=== PATIENT | female | born 2000 | race African-American/Black ===

== ENCOUNTER 2021-06-30 08:27 | Outpatient (RCR) | payer BC, SELFPAY ==
[2021-06-30 15:19] VITALS: BP 120/52; PULSE 69; RESP 14; TEMP 36.3; O2SAT 100
[2021-06-30] MEDS: ACETAMINOPHEN 325 MG TABLET 650 MG PO (15:28)
[2021-06-30] MEDS: FAMOTIDINE 20 MG TABLET PO (15:28)
[2021-06-30] MEDS: diphenhydrAMINE HCl CAP 25 MG CAPSULE PO (15:28)
[2021-06-30 16:29] VITALS: BP 128/64
--- NOTE | 2021-07-01 15:17 | PC.NURSE ---
Called Yaniv and she said she is doing well today and has no questions for us.
== END 2021-06-30 17:00 ==
LOC: AMCINF 08:27
PROVIDERS: Visit Provider Internal Medicine Hematology & Oncology
DX: U07.1 COVID-19 (principal); D84.9 Immunodeficiency, unspecified
CPT/HCPCS: A9270; M0243; Q0244

== ENCOUNTER 2021-08-26 17:04 | Emergency (ER) | payer BC, SELFPAY ==
--- NOTE | ~2021-08-26 | CT_ITS ---
EXAMINATION: CTA chest PE protocol DATE: 08/26/2021 18:48 INDICATION: Chest pain. TECHNIQUE: Computed tomography angiography (CTA) of the chest was performed with 100 mL Omnipaque-350 intravenous contrast timed to evaluate the pulmonary arteries. Coronal maximum intensity projection 3D-reconstructions were created by the technologist. Automated exposure control and iterative reconst ruction technique were employed. The dose-length product was 243.27 mGy-cm. COMPARISON: Chest 2 views 08/26/21 FINDINGS: There is septal thickening in the inferior lungs consistent with mild pulmonary edema. Ther e is a small left pleural effusion. There are airspace opacities in basilar left lower lobe and lingu la, consistent with atelectasis. There is a gallstone in the gallbladder. Cardiomegaly is noted. No p ericardial effusion. There is mild mediastinal, bilateral hilar, and bilateral axillary lymphadenopat hy. There is no pulmonary embolus. There is mild chronic anterior wedging of T12 vertebral body. IMPRESSION: 1. No pulmonary embolus. 2. Mild pulmonary edema and small left pleural effusion. 3. Cardiomegaly. 4. Mild chest lymphadenopathy, which may be reactive. Reviewed, dictated and finalized at location E. CONSERVATIONIST
--- NOTE | ~2021-08-26 | XR_ITS ---
EXAMINATION: XR chest 2V DATE: 08/26/2021 17:31 INDICATION: Left chest pain. TECHNIQUE: Frontal and lateral views of the chest were obtained. COMPARISON: None. FINDINGS: There are mild airspace opacities at left lung base. Left-sided pleural thickening versus t iny loculated pleural effusion is noted. No pneumothorax. The heart size is normal. IMPRESSION: 1. Mild airspace opacities at left lung base, consistent with atelectasis/scarring versus pneumonia. 2. Left-sided pleural thickening versus tiny loculated pleural effusion. Reviewed, dictated and finalized at location E. CASTER IMPRESSION: 1. Mild airspace opacities at left lung base, consistent with atelectasis/scarr ing versus pneumonia. 2. Left-sided pleural thickening versus tiny loculated pleural effusion.
[2021-08-26 17:06] VITALS: BP 161/92; PULSE 70; RESP 18; O2SAT 100
--- NOTE | 2021-08-26 17:11 | ECG_ITS ---
Measurements Intervals [place] Rate: 76 P: 51 NC: 166 QRS: 44 QRSD: 85 T: 64 QT: 378 QTc: 425 Interpretive Statements SINUS RHYTHM INCOMPLETE RIGHT BUNDLE BRANCH BLOCK BASELINE WANDER- I, III, AVL, AVF BORDERLINE ECG Electronically Signed On 08-26-2021 20:46:38 [employer]UMBING WAREHOUSE HELPER by Deangelo Webster D.O.
[2021-08-26 17:22] VITALS: BP 156/90; PULSE 71; RESP 14; O2SAT 100
[2021-08-26 17:36] LABS: Alanine Aminotransferase 14 U/L (4-35); Albumin Level 3.3 g/dL (3.5-5.1); Alkaline Phosphatase 64 U/L (38-126); Anion Gap 9 mmol/L (8-16); Aspartate Amino Transferase 28 U/L (14-36); Bilirubin,Total 0.4 mg/dL (0.2-1.3); Blood Urea Nitrogen 22 mg/dL (7-17); Calcium 8.6 mg/dL (8.4-10.2); Carbon Dioxide 23 mmol/L (22-30); Chloride 104 mmol/L (98-107); Estimated CRCL calculation 66 ml/min; Estimated Glomerular Filt Rate > 60; Glucose 84 mg/dL (65-110); Lipase 116 U/L (23-300); Potassium 4.3 mmol/L (3.4-5.0); Sodium 136 mmol/L (137-145)
[2021-08-26 17:39] LABS: Basophils Percent Auto 0.4 % (0.2-1.2); Eosinophils Absolute Auto 0.1 K/mm3 (0-0.3); Eosinophils Percent Auto 1.2 % (0-4.4); Hematocrit 29.9 % (37.0-47.0); Hemoglobin 9.2 g/dL (12.0-15.0); Immature Granulocyte Absolute 0.01 K/mm3 (0.00-0.031); Immature Granulocyte Percent A 0.2 % (0-0.5); Lymphocytes Absolute Auto 0.89 K/mm3 (0.9-3.2); Lymphocytes Percent Auto 17.1 % (18.3-44.2); Mean Corpuscular HGB Conc 30.8 g/dl (32-36); Mean Corpuscular Hemoglobin 27.5 pg (26-34); Mean Corpuscular Volume 89.3 fl (80-100); Mean Platelet Volume 10.8 fl (7.4-10.4); Monocytes Absolute Auto 0.9 K/mm3 (0.1-0.6); Monocytes Percent Auto 16.5 % (2.6-8.5); Neutrophils Absolute Auto 3.4 K/mm3 (1.3-6.7); Neutrophils Percent Auto 64.6 % (45.5-73.1); Platelet Count Result 307 k/mm3 (150-375); Red Blood Count 3.35 M/mm3 (4.2-5.4); Red Cell Distribution Width 12.6 % (11.5-14.5); White Blood Count 5.2 K/mm3 (4.5-10.0)
[2021-08-26 17:43] LABS: Prothrombin Time 13.1 Seconds (11.1-14.7)
[2021-08-26 17:44] LABS: Partial Thromboplastin Time 28.6 SECONDS (22.3-36.8)
--- NOTE | 2021-08-26 17:46 | ED.CHESTPAIN ---
HPI - Chest Pain General Chief Complaint: Chest Pain Stated Complaint: chest pain Time Seen by Provider: 08/26/21 17:32 Source: patient Mode of arrival: ambulatory Limitations: no limitations History of Present Illness HPI narrative: Patient is a 21-year-old female complaining of chest pain, left chest wall, sharp, 6 out of 10, nonradiating, worse with deep breaths accompanied by shortness of breath that started last night. Patient denies any abdominal pain, nausea, vomiting, diaphoresis, fever or chills. Patient states that she has a history of fluid in her lungs due to her lupus. Related Data Home Medications Medication Instructions Recorded Confirmed belimumab [Benlysta] 200 mg SUBCUT WEEKLY 06/30/21 06/30/21 hydroxychloroquine [Plaquenil] 200 mg PO DAILY 06/30/21 06/30/21 lisinopril 10 mg PO DAILY 06/30/21 06/30/21 mycophenolate mofetil 1,000 mg PO BID 06/30/21 mycophenolate mofetil 250 mg PO DAILY 06/30/21 sulfamethoxazole-trimethoprim 1 tablet PO HS 06/30/21 06/30/21 [Bactrim] prednisone 20 mg DAILY 08/26/21 Allergies Allergy/AdvReac Type Severity Reaction Status Date / Time fruit Allergy Intermediate Unknown Uncoded 08/26/21 17:14 Review of Systems Review of Systems: All systems reviewed & are unremarkable except as noted in HPI and below Constitutional: Constitutional: Denies body ache(s), Denies chills, Denies excessive sweating, Denies fatigue, Denies fever(s), Denies headache(s), Denies lethargy, Denies malaise, Denies weakness and Denies weight loss Eyes: Eyes: Denies blurry vision, Denies change in vision and Denies loss of vision ENT: Denies dizziness, Denies ear discharge, Denies headache(s), Denies lip swelling, Denies epistaxis, Denies nasal congestion, Denies neck pain, Denies throat swelling and Denies tongue swelling Cardiovascular: Cardiovascular: Denies diaphoresis, Denies rapid heart rate, Denies edema, Denies irregular heart rhythm, Denies lightheadedness and Denies palpitations Respiratory: Respiratory: Denies chest congestion, Denies cough and Denies hemoptysis Gastrointestinal: Gastrointestinal: Denies abdominal pain, Denies melena, Denies hematochezia, Denies diarrhea, Denies nausea, Denies vomiting and Denies hematemesis Musculoskeletal: Musculoskeletal: Denies abnormal gait, Denies deformity, Denies joint swelling, Denies limited range of motion, Denies neck pain and Denies numbness Neurologic: Denies Abnormal speech present, Denies abnormal gait, Denies confusion, Denies dizziness, Denies headache(s), Denies focal weakness, Denies loss of vision, Denies numbness, Denies Other visual disturbances, Denies Sensory deficit (Neuro) and Denies weakness Psychiatric: Psychiatric: Denies confusion, Denies depression, Denies auditory hallucinations, Denies homicidal ideation and Denies suicidal ideation Endocrine: Endocrine: Denies cold intolerance, Denies excessive sweating, Denies fatigue, Denies heat intolerance and Denies palpitations Hematologic/Lymphatic: Hematologic/Lymphatic: Denies easy bleeding and Denies easy bruising Allergic/Immunologic: Allergic/Immunologic: Denies lip swelling, Denies throat swelling and Denies tongue swelling [facility] [place] Social History Social History Smoking status: Never smoker Spiritual care concerns: No Comments Past medical history Lupus Family history: Negative for coronary disease or [place] Social history: Non-smoker no EtOH or drug use Exam Const: General: cooperative, healthy appearing, comfortable, no acute distress, well developed, alert and awake; No confusion Orientation/consciousness: oriented to person, oriented to place, oriented to time, patient oriented x3 and No confusion Limitations: no limitations HENMT: Head: normal to inspection, normocephalic and atraumatic Ears: hearing grossly normal bilaterally, TM normal on the right and TM normal on the left General nose exam: Normal external n
[2021-08-26 17:47] LABS: Troponin I < 0.012 ng/mL (0.000-0.034)
[2021-08-26 18:04] LABS: D Dimer 0.84 ug/mL (<0.48)
[2021-08-26] MEDS: LACTATED RINGERS 1,000 ML 999 ML IV CONT (18:30)
[2021-08-26] MEDS: ACETAMINOPHEN 325 MG TABLET 650 MG PO (19:37)
[2021-08-26 20:29] LABS: Troponin I < 0.012 ng/mL (0.000-0.034)
[2021-08-26] MEDS: FUROSEMIDE INJ 40 MG/4 ML VIAL 20 MG IV PUSH (21:33)
[2021-08-26 21:47] VITALS: BP 151/89; PULSE 98; RESP 18; O2SAT 98
--- NOTE | 2021-08-27 02:52 | PC.NURSE ---
all documentation done by BRANT was performed by Angelika Brantley RN. Times of documentation are correct.
== END 2021-08-26 21:48 | disposition home or self-care (01) ==
PROVIDERS: Emergency Provider Emergency Medicine
DX: J90 Pleural effusion, not elsewhere classified (principal)
CPT/HCPCS: 36415; 71046; 71275; 80053; 83690; 84484; 85025; 85380; 85610; 85730; 93005; 96361; 96374; 99284; A9270; J1940; J7120; Q9967

== ENCOUNTER 2021-10-24 01:35 | Emergency (ER) | payer BC, SELFPAY ==
[2021-10-24] VITALS (7 sets, daily range): BP systolic 109–143; BP diastolic 65–92; PULSE 65–89; RESP 16–23; TEMP 37.3; O2SAT 96–100
--- NOTE | ~2021-10-24 | CT_ITS ---
EXAMINATION: CTA chest PE protocol DATE: 10/24/2021 03:44 INDICATION: Chest pain, history of lupus TECHNIQUE: Computed tomography angiography (CTA) of the chest was performed with 100 mL Omnipaque-350 intravenous contrast timed to evaluate the pulmonary arteries. Coronal maximum intensity projection 3D-reconstructions were created by the technologist. The dose-length product (DLP) was 254.35 mGy-cm. Automated exposure control and iterative reconstruction technique were employed. COMPARISON: 08/26/2021 FINDINGS: The pulmonary arteries are well-opacified. No pulmonary embolism is identified. There is a small left pleural effusion. Mild atelectasis is noted in the lung bases, left greater than right. T here is no pneumothorax. Cardiomegaly is noted. There is unchanged mild bilateral hilar, mediastinal, and bilateral axillary lymphadenopathy, likely reactive. The visualized osseous structures are unrem arkable. IMPRESSION: 1. No pulmonary embolus. 2. Small left pleural effusion. 3. Cardiomegaly. 4. Unchanged mild thoracic lymphadenopathy, likely reactive. Reviewed, dictated and finalized at location A.
--- NOTE | ~2021-10-24 | XR_ITS ---
EXAMINATION: XR chest 2V DATE: 10/24/2021 02:11 INDICATION: Chest pain TECHNIQUE: PA and lateral views of the chest are obtained. COMPARISON: 08/26/2021 FINDINGS: The lungs are free of acute opacities. There is no pleural effusion or pneumothorax. The ca rdiomediastinal silhouette is normal. The visualized bones and soft tissues are unremarkable. IMPRESSION: 1. No acute cardiopulmonary abnormality. Reviewed, dictated and finalized at location A.
--- NOTE | 2021-10-24 01:51 | ECG_ITS ---
Measurements Intervals [place] Rate: 81 P: 57 DC: 156 QRS: 37 QRSD: 80 T: 33 QT: 348 QTc: 406 Interpretive Statements SINUS RHYTHM NORMAL ECG COMPARED TO ECG 08/26/2021 17:17:55 NO SIGNIFICANT CHANGES Electronically Signed On 10-24-2021 15:26:51 CDT by Ángel Keith M.D.
[2021-10-24 02:10] LABS: Basophils Percent Auto 0.5 % (0.2-1.2); Eosinophils Absolute Auto 0.1 K/mm3 (0-0.3); Eosinophils Percent Auto 1.6 % (0-4.4); Hematocrit 29.7 % (37.0-47.0); Immature Granulocyte Absolute 0.01 K/mm3 (0.00-0.031); Immature Granulocyte Percent A 0.2 % (0-0.5); Lymphocytes Absolute Auto 0.84 K/mm3 (0.9-3.2); Lymphocytes Percent Auto 19.2 % (18.3-44.2); Mean Corpuscular HGB Conc 30.3 g/dl (32-36); Mean Corpuscular Hemoglobin 26.9 pg (26-34); Mean Corpuscular Volume 88.7 fl (80-100); Monocytes Absolute Auto 0.5 K/mm3 (0.1-0.6); Neutrophils Percent Auto 67.5 % (45.5-73.1); Platelet Count Result 311 k/mm3 (150-375); Red Blood Count 3.35 M/mm3 (4.2-5.4); Red Cell Distribution Width 13.4 % (11.5-14.5); White Blood Count 4.4 K/mm3 (4.5-10.0)
--- NOTE | 2021-10-24 02:11 | ED.CHESTPAIN ---
HPI - Chest Pain General Chief Complaint: Chest Pain Stated Complaint: left shoulder pain, radiates to chest and neck Time Seen by Provider: 10/24/21 02:08 Related Data Home Medications Medication Instructions Recorded Confirmed belimumab [Benlysta] 200 mg SUBCUT WEEKLY 06/30/21 06/30/21 hydroxychloroquine [Plaquenil] 200 mg PO DAILY 06/30/21 06/30/21 lisinopril 10 mg PO DAILY 06/30/21 06/30/21 mycophenolate mofetil 1,000 mg PO BID 06/30/21 mycophenolate mofetil 250 mg PO DAILY 06/30/21 sulfamethoxazole-trimethoprim 1 tablet PO HS 06/30/21 06/30/21 [Bactrim] prednisone 20 mg DAILY 08/26/21 Allergies Allergy/AdvReac Type Severity Reaction Status Date / Time fruit Allergy Intermediate Unknown Uncoded 10/24/21 01:49 [facility] Social History Social History Smoking status: Never smoker Spiritual care concerns: No Course Vital Signs Vital signs: Vital Signs Temperature 99.2 F 10/24/21 01:45 Pulse Rate 85 10/24/21 01:45 Respiratory Rate 16 10/24/21 01:45 Blood Pressure 143/84 H 10/24/21 01:45 Pulse Oximetry 100 10/24/21 01:45 Temperature 99.2 F 10/24/21 01:45 Pulse Rate 65 10/24/21 05:01 Respiratory Rate 16 10/24/21 05:01 Blood Pressure 109/65 10/24/21 05:01 Pulse Oximetry 100 10/24/21 05:01 MDM - Chest Pain Lab Data Attestation: I reviewed the patient's lab results. Result diagrams: 10/24/21 02:01 10/24/21 02:01 Labs: Lab Results 10/24/21 10/24/21 10/24/21 Range/Units 02:01 02:01 02:01 WBC 4.4 L (4.5-10.0) K/mm3 RBC 3.35 L (4.2-5.4) M/mm3 Hgb 9.0 L (12.0-15.0) g/dL Hct 29.7 L (37.0-47.0) % MCV 88.7 (80-100) fl MCH 26.9 (26-34) pg MCHC 30.3 L (32-36) g/dl RDW 13.4 (11.5-14.5) % Plt Count 311 (150-375) k/mm3 MPV 10.0 (7.4-10.4) fl Immature Gran % (Auto) 0.2 (0-0.5) % Neut % (Auto) 67.5 (45.5-73.1) % Lymph % (Auto) 19.2 (18.3-44.2) % [place] % (Auto) 11.0 H (2.6-8.5) % Eos % (Auto) 1.6 (0-4.4) % Baso % (Auto) 0.5 (0.2-1.2) % Lymph # (Auto) 0.84 L (0.9-3.2) K/mm3 [place] # (Auto) 0.5 (0.1-0.6) K/mm3 Eos # (Auto) 0.1 (0-0.3) K/mm3 Baso # (Auto) 0.0 (0.0-0.1) K/mm3 Abs Immat Gran (auto) 0.01 (0.00-0.031) K/mm3 Absolute Neuts (auto) 3.0 (1.3-6.7) K/mm3 Absolute Nucleated RBC 0.0 (0.0-0.012) K/mm3 Nucleated RBC % 0.0 (0.0-0.2) % PT 12.5 (11.1-14.7) Seconds INR 1.0 APTT 20.4 L (22.3-36.8) SECONDS D-Dimer (<0.48) ug/mL Sodium 132 L (137-145) mmol/L Potassium 3.5 (3.4-5.0) mmol/L Chloride 106 (98-107) mmol/L Carbon Dioxide 22 (22-30) mmol/L Anion Gap 4 L (8-16) mmol/L BUN 17 (7-17) mg/dL Creatinine 0.80 (0.7-1.0) mg/dL Estim Creat Clear Calc 94232 ml/min Estimated GFR > 60 (59 - ) Glucose 103 (65-110) mg/dL Calcium 8.0 L (8.4-10.2) mg/dL Total Bilirubin 0.3 (0.2-1.3) mg/dL AST 27 (14-36) U/L ALT 12 (4-35) U/L Alkaline Phosphatase 59 (38-126) U/L Troponin I < 0.012 (0.000-0.034) ng/mL Total Protein 7.0 (6.3-8.2) g/dL Albumin 3.0 L (3.5-5.1) g/dL Lipase 125 (23-300) U/L 10/24/21 Range/Units 02:01 WBC (4.5-10.0) K/mm3 RBC (4.2-5.4) M/mm3 Hgb (12.0-15.0) g/dL Hct (37.0-47.0) % MCV (80-100) fl MCH (26-34) pg MCHC (32-36) g/dl RDW (11.5-14.5) % Plt Count (150-375) k/mm3 MPV (7.4-10.4) fl Immature Gran % (Auto) (0-0.5) % Neut % (Auto) (45.5-73.1) % Lymph % (Auto) (18.3-44.2) % [place] % (Auto) (2.6-8.5) % Eos % (Auto) (0-4.4) % Baso % (Auto) (0.2-1.2) % Lymph # (Auto) (0.9-3.2) K/mm3 [place] # (Auto) (0.1-0.6) K/mm3 Eos # (Auto) (0-0.3) K/mm3 Baso # (Auto) (0.0-0.1) K/mm3 Abs Immat Gran (auto) (0.00-0.031) K/mm3 Absolute Neuts (auto) (1.3-6.7) K/mm3 Absolute Nucleated RBC (0.0-0.012)
[2021-10-24 02:20] LABS: Alanine Aminotransferase 12 U/L (4-35); Alkaline Phosphatase 59 U/L (38-126); Anion Gap 4 mmol/L (8-16); Aspartate Amino Transferase 27 U/L (14-36); Bilirubin,Total 0.3 mg/dL (0.2-1.3); Blood Urea Nitrogen 17 mg/dL (7-17); Carbon Dioxide 22 mmol/L (22-30); Chloride 106 mmol/L (98-107); Estimated CRCL calculation 47136 ml/min; Estimated Glomerular Filt Rate > 60; Glucose 103 mg/dL (65-110); Lipase 125 U/L (23-300); Partial Thromboplastin Time 20.4 SECONDS (22.3-36.8); Potassium 3.5 mmol/L (3.4-5.0); Prothrombin Time 12.5 Seconds (11.1-14.7); Sodium 132 mmol/L (137-145)
[2021-10-24 02:32] LABS: Troponin I < 0.012 ng/mL (0.000-0.034)
--- NOTE | 2021-10-24 02:32 | ED.CHESTPAIN ---
HPI - Chest Pain General Chief Complaint: Chest Pain Stated Complaint: left shoulder pain, radiates to chest and neck Time Seen by Provider: 10/24/21 02:08 History of Present Illness HPI narrative: 21-year-old female presents the emergency room with acute onset of left shoulder pain that occurred earlier tonight. Patient states the pain was sharp and stabbing and then radiated into her left anterior chest. Patient states the pain is worse with inspiration, and she is unable to take a deep satisfying breath at this time. Patient has a history of lupus, and recently pleurisy. Patient takes Plaquenil and 40 mg of prednisone daily. Related Data Home Medications Medication Instructions Recorded Confirmed belimumab [Benlysta] 200 mg SUBCUT WEEKLY 06/30/21 06/30/21 hydroxychloroquine [Plaquenil] 200 mg PO DAILY 06/30/21 06/30/21 lisinopril 10 mg PO DAILY 06/30/21 06/30/21 mycophenolate mofetil 1,000 mg PO BID 06/30/21 mycophenolate mofetil 250 mg PO DAILY 06/30/21 sulfamethoxazole-trimethoprim 1 tablet PO HS 06/30/21 06/30/21 [Bactrim] prednisone 20 mg DAILY 08/26/21 Allergies Allergy/AdvReac Type Severity Reaction Status Date / Time fruit Allergy Intermediate Unknown Uncoded 10/24/21 01:49 Review of Systems Review of Systems: CONSTITUTIONAL: Denies fever, chills, or sweats. EYES: Denies visual changes, redness, or discharge. ENT: Denies rhinorrhea, congestion, sore throat, or otalgia. CARDIOVASCULAR: Reports inspirational chest pain RESPIRATORY: Denies cough or dyspnea. GASTROINTESTINAL: Denies abdominal pain, nausea, vomiting, or diarrhea. GENITOURINARY: Denies dysuria or hematuria. SKIN: Denies rash or itching. MUSCULOSKELETAL: Denies back pain, joint pain, or myalgia. NEUROLOGIC: Denies headache, numbness, dizziness, or weakness. PSYCHIATRIC: Denies anxiety or depression. PMFSH Social History Social History Smoking status: Never smoker Spiritual care concerns: No Exam Narrative: GENERAL: Well-appearing, well-nourished, and in no acute distress. HEAD: Normocephalic, atraumatic. EYES: PERRLA and EOMI. CHEST: Clear to auscultation. No respiratory distress. No wheezes rales or rhonchi HEART: Regular rate and rhythm. No murmur heard. Normal peripheral pulses. ABDOMEN: Soft, nontender, nondistended, normal active bowel sounds. EXTREMITIES: Normal range of motion. No edema. SKIN: Warm, dry, no rash. NEURO: No focal deficits. Alert and oriented x3. Cranial nerves II through XII intact PSYCH: Tearful. Course Vital Signs Vital signs: Vital Signs Temperature 37.3 C 10/24/21 01:45 Pulse Rate 85 10/24/21 01:45 Respiratory Rate 16 10/24/21 01:45 Blood Pressure 143/84 H 10/24/21 01:45 Pulse Oximetry 100 10/24/21 01:45 Temperature 37.3 C 10/24/21 01:45 Pulse Rate 85 10/24/21 01:45 Respiratory Rate 16 10/24/21 01:45 Blood Pressure 143/84 H 10/24/21 01:45 Pulse Oximetry 100 10/24/21 01:45 MDM - Chest Pain MDM Narrative Medical decision making narrative: 21-year-old female presented to emergency room with complaints of sharp and stabbing left shoulder pain that radiated into her chest, that was worse with inspiration. Patient has a history of lupus. Patient was recently evaluated in the emergency room for similar symptoms and was diagnosed with pleurisy with small effusion. Chest x-ray showed no acute cardiopulmonary disease. CBC and CMP were on remarkable. Troponin was negative patient is likely experiencing pleurisy in relation to her lupus. Lab Data Attestation: I reviewed the patient's lab results. Result diagrams: 10/24/21 02:01 10/24/21 02:01 Labs: Lab Results 10/24/21 10/24/21 10/24/21 Range/Units 02:01 02:01 02:01 WBC 4.4 L (4.5-10.0) K/mm3 RBC 3.35 L (4.2-5.4) M/mm3 Hgb 9.0 L (12.0-15.0) g/dL Hct 29.7 L (37.0-47.0) % MCV 88.7 (80-100) fl MCH 26.
[2021-10-24] MEDS: ASPIRIN 81 MG CHEWABLE TABLET 324 MG PO (03:00)
[2021-10-24] MEDS: KETOROLAC 30 MG/ML VIAL (*BKC) IV PUSH (03:01)
[2021-10-24 03:12] LABS: D Dimer 1.98 ug/mL (<0.48)
== END 2021-10-24 05:58 | disposition home or self-care (01) ==
PROVIDERS: Emergency Medicine; Emergency Provider Nurse Practitioner Family
DX: R09.1 Pleurisy (principal); M32.9 Systemic lupus erythematosus, unspecified
CPT/HCPCS: 36415; 71046; 71275; 80053; 81025; 83690; 84484; 85025; 85380; 85610; 85730; 93005; 96374; 99284; A9270; J1885; Q9967

== ENCOUNTER 2021-12-16 11:08 | Emergency (ER) | payer BC, SELFPAY ==
--- NOTE | ~2021-12-16 | CT_ITS ---
EXAMINATION: CT abdomen pelvis wo con DATE: 12/16/2021 13:15 INDICATION: Right lower quadrant pain TECHNIQUE: Computed tomography (CT) of the abdomen and pelvis was performed without intravenous contr ast. The dose-length product was 390.26 mGy-cm. Automated exposure control and iterative reconstructi on technique were employed. Lung bases are unremarkable. Heart size normal. No significant pleural or pericardial effusion. COMPARISON: None. FINDINGS: Lung bases are unremarkable. Heart size normal. No pleural or pericardial abnormality. No s ignificant vascular abnormality. The liver, spleen, pancreas, adrenal glands and left kidney are unremarkable. There is minimal right hydronephrosis with subtle right proximal periureteral fat stranding. No obstructing stone or mass id entified. There is an IUD in the uterus. Nonobstructive bowel gas pattern. Normal appendix. No free a ir or free fluid. There are gallstones. No lymphadenopathy. No acute osseous abnormality. IMPRESSION: 1. Minimal right hydronephrosis with surgical periureteral stranding. No obstructing stone or mass. C onsider recently passed stone or ascending urinary tract infection. 2: Cholelithiasis. Reviewed, dictated and finalized at location A. IMPRESSION: 1. Minimal right hydronephrosis with surgical periureteral stranding. No obstru cting stone or mass. Consider recently passed stone or ascending urinary tract infection. 2: Cholelithiasis.
[2021-12-16 11:36] VITALS: BP 134/77; PULSE 119; RESP 18; TEMP 37.6; O2SAT 100
[2021-12-16 11:53] LABS: Basophils Percent Auto 0.2 % (0.2-1.2); Eosinophils Percent Auto 0.5 % (0-4.4); Hematocrit 30.2 % (37.0-47.0); Hemoglobin 9.3 g/dL (12.0-15.0); Immature Granulocyte Absolute 0.03 K/mm3 (0.00-0.031); Immature Granulocyte Percent A 0.3 % (0-0.5); Lymphocytes Absolute Auto 0.81 K/mm3 (0.9-3.2); Lymphocytes Percent Auto 9.2 % (18.3-44.2); Mean Corpuscular HGB Conc 30.8 g/dl (32-36); Mean Corpuscular Hemoglobin 26.7 pg (26-34); Mean Corpuscular Volume 86.8 fl (80-100); Mean Platelet Volume 10.5 fl (7.4-10.4); Monocytes Absolute Auto 0.9 K/mm3 (0.1-0.6); Monocytes Percent Auto 10.1 % (2.6-8.5); Neutrophils Percent Auto 79.7 % (45.5-73.1); Platelet Count Result 293 k/mm3 (150-375); Red Blood Count 3.48 M/mm3 (4.2-5.4); Red Cell Distribution Width 14.4 % (11.5-14.5); White Blood Count 8.8 K/mm3 (4.5-10.0)
[2021-12-16 12:00] VITALS: BP 134/77; PULSE 119; RESP 18; TEMP 37.6; O2SAT 100
[2021-12-16 12:03] LABS: Alanine Aminotransferase 14 U/L (6-35); Albumin Level 3.1 g/dL (3.5-5.1); Alkaline Phosphatase 63 U/L (38-126); Anion Gap 4 mmol/L (8-16); Aspartate Amino Transferase 30 U/L (14-36); Bilirubin,Total 0.7 mg/dL (0.2-1.3); Blood Urea Nitrogen 23 mg/dL (7-17); Calcium 8.5 mg/dL (8.4-10.2); Carbon Dioxide 23 mmol/L (22-30); Chloride 106 mmol/L (98-107); Estimated CRCL calculation 75 ml/min; Estimated Glomerular Filt Rate > 60; Glucose 95 mg/dL (65-110); Lipase 84 U/L (23-300); Potassium 3.9 mmol/L (3.4-5.0); Sodium 133 mmol/L (137-145)
[2021-12-16 12:33] LABS: Appearance Urine Slightly Cloudy (Clear); Bilirubin Urine Negative (Negative); Blood Urine 2+ (Negative); Color Urine Yellow (Yellow); Glucose Urine UA Negative (Negative); Ketones Urine Negative (Negative); Leukocyte Esterase Ur 1+ LEU/UL (Negative); Nitrate Urine Negative (Negative); Protein Urine 3+ mg/dL (Negative); Specific Grav Ur 1.015 (1.001-1.035); Urobilinogen Urine 0.2 mg/dL (<2.0); pH Urine 5.5 (5.0-9.0)
[2021-12-16 12:45] LABS: Bacteria Urine Trace /hpf; Mucus Urine Rare /lpf; Squamous Epithelial Cell Urine Few /hpf (Few); WBC Clumps Urine Present /HPF; WBC Urine >75 /hpf
[2021-12-16 12:48] LABS: Add Urine Microscopic? YES
--- NOTE | 2021-12-16 12:59 | ED.ABDPAIN ---
HPI - Abdominal Pain General Chief Complaint: Abdominal Pain Stated Complaint: abdominal pain Time Seen by Provider: 12/16/21 12:06 History of Present Illness HPI narrative: 21-year-old female presenting to the emergency department for evaluation of right lower quadrant pain. Patient states yesterday she began developing some abdominal cramping and diarrhea. Patient states that she was having generalized pain last night but had worsening right lower quadrant pain overnight. Patient was able to go to practice today but once again had worsening symptoms. Patient describes right-sided abdominal pain at this time. Patient denies any associated nausea or vomiting. Patient does have underlying history of lupus. Related Data Home Medications Medication Instructions Recorded Confirmed belimumab 200 mg/mL subcutaneous 200 mg subcut WEEKLY 06/30/21 06/30/21 auto-injector (Benlysta) hydroxychloroquine 200 mg tablet 200 mg PO DAILY 06/30/21 06/30/21 (Plaquenil) lisinopril 10 mg tablet 10 mg PO DAILY 06/30/21 06/30/21 mycophenolate mofetil 250 mg 250 mg PO DAILY 06/30/21 capsule mycophenolate mofetil 500 mg tablet 1,000 mg PO BID 06/30/21 sulfamethoxazole 400 1 tablet PO HS 06/30/21 06/30/21 mg-trimethoprim 80 mg tablet (Bactrim) prednisone 10 mg tablet 20 mg DAILY 08/26/21 Allergies Allergy/AdvReac Type Severity Reaction Status Date / Time fruit Allergy Intermediate Unknown Uncoded 12/16/21 11:55 Review of Systems Review of Systems: CONSTITUTIONAL: Denies fever, chills, or sweats. EYES: Denies visual changes, redness, or discharge. ENT: Denies rhinorrhea, congestion, sore throat, or otalgia. CARDIOVASCULAR: Denies chest pain, palpitations, or edema. RESPIRATORY: Denies cough or dyspnea. GASTROINTESTINAL: See HPI GENITOURINARY: See HPI SKIN: Denies rash or itching. MUSCULOSKELETAL: Denies back pain, joint pain, or myalgia. NEUROLOGIC: Denies headache, numbness, or weakness. PMFSH Social History Social History Smoking status: Never smoker Spiritual care concerns: No Exam Narrative: APPEARANCE: Well appearing, no pain, no distress, well-nourished. HEAD: normocephalic, atraumatic. EYES: PERRLA/EOMI, conjunctivae clear. THROAT: Pharynx clear, no exudate. NECK: Supple. No adenopathy, no masses. RESPIRATORY: Airway patent, respirations nonlabored. Clear to auscultation bilaterally, no rales, rhonchi, wheezing. CARDIOVASCULAR: Regular rate and rhythm without murmurs rubs or gallops. ABDOMINAL: Lower abdominal tenderness to palpation. MUSCULOSKELETAL: Moves all extremities. Strength/ROM intact, No edema, No calf tenderness. NEURO: Alert. Cranial nerves II through XII intact. Grossly intact SKIN: Warm, dry. Normal Color Course Course Emergency Course: Patient had a CT scan showed no evidence of appendicitis. Patient's UA was concerning for urinary tract infection. Patient CT scan also showed some perinephric stranding. Patient was started on antibiotics in the emergency department and discharged home with antibiotics. Patient and friend were updated on the results of the work-up. All questions concerns were addressed. Patient was stable at time of discharge from the emergency department. Vital Signs Vital signs: Vital Signs Temperature 99.7 F H 12/16/21 11:36 Pulse Rate 119 H 12/16/21 11:36 Respiratory Rate 18 12/16/21 11:36 Blood Pressure 134/77 12/16/21 11:36 Pulse Oximetry 100 12/16/21 11:36 Oxygen Delivery Room Air 12/16/21 11:36 Temperature 98.4 F 12/16/21 14:24 Pulse Rate 101 H 12/16/21 14:24 Respiratory Rate 16 12/16/21 14:24 Blood Pressure 130/70 12/16/21 14:24 Pulse Oximetry 100 12/16/21 14:24 Oxygen Delivery Room Air 12/16/21 11:36 MDM - Abdominal Pain Lab Data Attestation: I reviewed the patient's lab results. Result diagrams: 12/16/21 11:44 12/16/21 11:44
[2021-12-16] MEDS: SODIUM CHLORIDE 0.9% IV 1,000 ML 999 ML IV CONT (13:09)
[2021-12-16] MEDS: HYDROmorphone HCL INJ (*CRX) 1 MG/ML SYR 0.5 MG IV PUSH (13:09)
[2021-12-16 14:24] VITALS: BP 130/70; PULSE 101; RESP 16; TEMP 36.9; O2SAT 100
== END 2021-12-16 14:25 | disposition home or self-care (01) ==
PROVIDERS: Emergency Provider Emergency Medicine
DX: N39.0 Urinary tract infection, site not specified (principal); R10.31 Right lower quadrant pain
CPT/HCPCS: 36415; 74176; 80053; 81001; 81025; 83690; 85025; 87077; 87086; 87186; 96361; 96365; 96375; 99284; J0696; J1170; J7030

== ENCOUNTER 2022-06-06 21:42 | Emergency (ER) | payer BC, SELFPAY ==
--- NOTE | ~2022-06-06 | XR_ITS ---
EXAMINATION: XR chest 2V DATE: 06/06/2022 22:27 INDICATION: Chest tightness. TECHNIQUE: Frontal and lateral views of the chest were obtained. COMPARISON: Chest 2 views 10/24/2021, CT abdomen and pelvis 12/16/2021, chest CT 10/24/2021 FINDINGS: There is no pneumonia, pleural effusion, or pneumothorax. The heart size is normal. IMPRESSION: 1. No acute cardiopulmonary disease. Reviewed, dictated and finalized at location A. AL CONSTRUCTOR
[2022-06-06 21:50] VITALS: BP 143/73; PULSE 79; RESP 16; TEMP 36.8; O2SAT 100
--- NOTE | 2022-06-06 22:00 | ECG_ITS ---
Measurements Intervals [place] Rate: 67 P: 51 [place]: 176 QRS: 33 QRSD: 90 T: 21 QT: 381 QTc: 403 Interpretive Statements SINUS RHYTHM NONSPECIFIC T-WAVE ABNORMALITY- ANT/INF LEADS BORDERLINE ECG COMPARED TO ECG 10/24/2021 01:57:20 T-WAVE ABNORMALITY NOW PRESENT Electronically Signed On 06-07-2022 9:02:30 GARMENT FINISHER by Deangelo Webster D.O.
[2022-06-06 22:20] LABS: Basophils Percent Auto 0.5 % (0.2-1.2); Eosinophils Absolute Auto 0.1 K/mm3 (0-0.3); Eosinophils Percent Auto 2.1 % (0-4.4); Hematocrit 30.1 % (37.0-47.0); Hemoglobin 9.3 g/dL (12.0-15.0); Immature Granulocyte Absolute 0.01 K/mm3 (0.00-0.031); Immature Granulocyte Percent A 0.2 % (0-0.5); Lymphocytes Absolute Auto 0.55 K/mm3 (0.9-3.2); Lymphocytes Percent Auto 12.7 % (18.3-44.2); Mean Corpuscular HGB Conc 30.9 g/dl (32-36); Mean Corpuscular Hemoglobin 27.2 pg (26-34); Mean Platelet Volume 10.6 fl (7.4-10.4); Monocytes Absolute Auto 0.4 K/mm3 (0.1-0.6); Monocytes Percent Auto 9.2 % (2.6-8.5); Neutrophils Absolute Auto 3.3 K/mm3 (1.3-6.7); Neutrophils Percent Auto 75.3 % (45.5-73.1); Platelet Count Result 287 k/mm3 (150-375); Red Blood Count 3.42 M/mm3 (4.2-5.4); Red Cell Distribution Width 13.2 % (11.5-14.5); White Blood Count 4.3 K/mm3 (4.5-10.0)
[2022-06-06 22:31] LABS: Prothrombin Time 13.2 Seconds (11.1-14.7)
[2022-06-06 22:32] LABS: Partial Thromboplastin Time 28.1 SECONDS (22.3-36.8)
[2022-06-06 22:35] LABS: Alanine Aminotransferase 15 U/L (6-35); Albumin Level 3.5 g/dL (3.5-5.1); Alkaline Phosphatase 88 U/L (38-126); Anion Gap 7 mmol/L (8-16); Aspartate Amino Transferase 28 U/L (14-36); Bilirubin,Total 0.3 mg/dL (0.2-1.3); Blood Urea Nitrogen 19 mg/dL (7-17); Calcium 8.7 mg/dL (8.4-10.2); Carbon Dioxide 23 mmol/L (22-30); Chloride 109 mmol/L (98-107); Estimated CRCL calculation 84 ml/min; Estimated Glomerular Filt Rate > 60; Glucose 97 mg/dL (65-110); Lipase 172 U/L (23-300); Potassium 3.9 mmol/L (3.4-5.0); Sodium 139 mmol/L (137-145)
[2022-06-06 22:46] LABS: Troponin I < 0.012 ng/mL (0.000-0.034)
--- NOTE | 2022-06-06 23:56 | PC.NURSE ---
called patient. no answer.
[2022-06-07 00:23] VITALS: O2SAT 100
[2022-06-07 00:24] VITALS: PULSE 71
[2022-06-07 01:45] LABS: Troponin I 0.012 ng/mL (0.000-0.034)
--- NOTE | 2022-06-07 02:04 | ED.GENADULT ---
HPI - General Adult General Chief complaint: Chest Pain Stated complaint: CP/Shoulder pain Time Seen by Provider: 06/07/22 01:35 History of Present Illness HPI narrative: This is a 22-year-old female presenting the ED with sudden onset of chest and shoulder pain. Patient says that around 745 this evening she started having sharp pain in her left chest and shoulder area that is associated with chest tightness and difficulty breathing. It is nonradiating, 10 out 10 intensity. Lasted for about 1 hour and is slowly improving. She has experienced this in the past when she has had a pleural effusion. Patient denies fever, chills, nausea vomiting diarrhea. Patient has family history of DVT in her mother due to control. Patient uses a Mirena IUD. Patient denies lower extremity edema, recent history of surgery or trauma. Related Data Home Medications Medication Instructions Recorded Confirmed belimumab 200 mg/mL subcutaneous 200 mg subcut WEEKLY 06/30/21 06/30/21 auto-injector (Benlysta) hydroxychloroquine 200 mg tablet 200 mg PO DAILY 06/30/21 06/30/21 (Plaquenil) lisinopril 10 mg tablet 10 mg PO DAILY 06/30/21 06/30/21 mycophenolate mofetil 250 mg 250 mg PO DAILY 06/30/21 capsule mycophenolate mofetil 500 mg tablet 1,000 mg PO BID 06/30/21 sulfamethoxazole 400 1 tablet PO HS 06/30/21 06/30/21 mg-trimethoprim 80 mg tablet (Bactrim) prednisone 10 mg tablet 20 mg DAILY 08/26/21 Allergies Allergy/AdvReac Type Severity Reaction Status Date / Time fruit Allergy Intermediate Unknown Uncoded 06/07/22 00:26 Review of Systems Review of Systems: CONSTITUTIONAL: Denies night sweats. EYES: No eye pain ENT: Denies rhinorrhea CARDIOVASCULAR: Denies palpitations RESPIRATORY: Denies hemoptysis GASTROINTESTINAL: Denies hematemesis GENITOURINARY: Denies hematuria. SKIN: Denies rash MUSCULOSKELETAL: Denies myalgia. NEUROLOGIC: Denies weakness. PSYCHIATRIC: Denies delusions PMFSH Past Medical History Medical History Lupus Social History Social History Smoking status: Never smoker Spiritual care concerns: No Exam Narrative: APPEARANCE: No apparent distress. Head: atraumatic. EYES: EOMI, NOSE: Atraumatic NECK: Trachea midline RESPIRATORY: No increased rate of breathing, clear to auscultation bilaterally CARDIOVASCULAR: RRR, no peripheral edema ABDOMINAL: Non-distended, nontender no guarding or rebound MUSCULOSKELETAl: No obvious deformities NEURO: Alert. Moving 4/4 extremities SKIN:: Warm, dry. Normal color PSYCHIATRIC: Normal affect am Course Vital Signs Vital signs: Vital Signs Temperature 98.2 F 06/06/22 21:50 Pulse Rate 79 06/06/22 21:50 Respiratory Rate 16 06/06/22 21:50 Blood Pressure 143/73 H 06/06/22 21:50 Pulse Oximetry 100 06/06/22 21:50 Temperature 98.2 F 06/06/22 21:50 Pulse Rate 71 06/07/22 02:31 Respiratory Rate 19 06/07/22 02:31 Blood Pressure 117/56 L 06/07/22 02:31 Pulse Oximetry 100 06/07/22 02:31 Oxygen Delivery Room Air 06/07/22 00:23 Medical Decision Making [facility] Narrative Medical decision making narrative: This is a 22-year-old female with a history of lupus, pleural effusions and blood clots in her mother. She presented with pleuritic chest pain associated with difficulty breathing. Basic lab work, chest x-ray and a D-dimer of been ordered. EKG interpretation: Rhythm [sinus], Rate 67, [place] -[normal], [place] -[normal], QRS [narrow], QTC [normal], T waves - T-wave inversions in V2 V3, ST Segments - [Negative for concerning elevations] Final interpretations: normal sinus rhythm nonspecific T-wave inversions, new as compared to EKG from earlier this year. CBC was within normal limits. BMP was normal. Troponin was negative. D-dimer was 0.54. YEARS Algorithm for Pulmonary Embolism (PE) from [facility] on
[2022-06-07 02:16] VITALS: BP 105/65; PULSE 73; RESP 22; O2SAT 99
[2022-06-07 02:31] VITALS: BP 117/56; PULSE 71; RESP 19; O2SAT 100
[2022-06-07 02:56] LABS: D Dimer 0.54 ug/mL (<0.48)
[2022-06-07 03:05] VITALS: BP 105/58; PULSE 79; RESP 22; O2SAT 98
== END 2022-06-07 03:10 | disposition home or self-care (01) ==
PROVIDERS: Emergency Provider Emergency Medicine
DX: J40 Bronchitis, not specified as acute or chronic (principal)
CPT/HCPCS: 36415; 71046; 80053; 83690; 84484; 85025; 85380; 85610; 85730; 93005; 99284

== ENCOUNTER 2022-10-27 22:09 | Emergency (ER) | payer BC, SELFPAY ==
--- NOTE | ~2022-10-27 | XR_ITS ---
EXAMINATION: XR tibia fibula RT 2V INDICATION: Right leg pain TECHNIQUE: Two views of the tibia and fibula are obtained on four radiographs. COMPARISON: 10/27/2022 FINDINGS: Bone alignment is normal. There is medial soft tissue swelling of ankle and foot. An osteoc hondral lesion of the talar dome is again questioned. IMPRESSION: 1. Possible osteochondral lesion of the talar dome. Reviewed, dictated and finalized at location A.
--- NOTE | ~2022-10-27 | XR_ITS ---
EXAMINATION: XR ankle RT min 3V INDICATION: Right ankle pain TECHNIQUE: Four views of the right ankle are obtained. COMPARISON: None available FINDINGS: There is medial soft tissue swelling of the ankle and foot. Bone alignment is normal. There is a questionable tiny osteochondral lesion of the talar dome. IMPRESSION: 1. Medial soft tissue swelling of the foot and ankle with possible tiny osteochondral lesion of the t alar dome. Reviewed, dictated and finalized at location F. IMPRESSION: 1. Medial soft tissue swelling of the foot and ankle with possible tiny osteoch ondral lesion of the talar dome.
--- NOTE | ~2022-10-27 | XR_ITS ---
EXAMINATION: XR foot RT min 3V DATE: 10/27/2022 22:55 INDICATION: Right foot pain TECHNIQUE: Dorsoplantar, lateral, and 2 oblique views of the right foot were obtained. COMPARISON: None. FINDINGS: Bone alignment is normal. There is no fracture. There is mild soft tissue swelling of the m edial foot and ankle. IMPRESSION: 1. Medial soft tissue swelling of the foot and ankle. Reviewed, dictated and finalized at location F.
[2022-10-27 22:26] VITALS: BP 143/96; PULSE 94; RESP 16; TEMP 37.3; O2SAT 100
--- NOTE | 2022-10-28 00:37 | ED.GENADULT ---
HPI - General Adult General Chief complaint: Extremity Injury, Lower Stated complaint: Right ankle pain, injury-told fx by MICHAEL Time Seen by Provider: 10/28/22 00:20 Source: patient Mode of arrival: ambulatory Limitations: no limitations History of Present Illness HPI narrative: This is a 22-year-old female presents the ED with chief complaint of right ankle pain beginning 2 days ago. 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 She denies any specific injury to the ankle. She is a tree expert at [employer] and was sent by the associate trainer to urgent care today. She had x-rays that showed possible stress fracture. She was given a boot and crutches and instructions for supportive measures. Patient states she has been taking ibuprofen [id number] and this has not been helpful. She feels that the pain is worsening and starting to radiate to the right ankle. Difficulty with weightbearing. Denies any further site of pain denies numbness or weakness. Related Data Home Medications Medication Instructions Recorded Confirmed belimumab 200 mg/mL subcutaneous 200 mg subcut WEEKLY 06/30/21 06/30/21 auto-injector (Benlysta) hydroxychloroquine 200 mg tablet 200 mg PO DAILY 06/30/21 06/30/21 (Plaquenil) lisinopril 10 mg tablet 10 mg PO DAILY 06/30/21 06/30/21 mycophenolate mofetil 250 mg 250 mg PO DAILY 06/30/21 capsule mycophenolate mofetil 500 mg tablet 1,000 mg PO BID 06/30/21 sulfamethoxazole 400 1 tablet PO HS 06/30/21 06/30/21 mg-trimethoprim 80 mg tablet (Bactrim) prednisone 10 mg tablet 20 mg DAILY 08/26/21 Allergies Allergy/AdvReac Type Severity Reaction Status Date / Time fruit Allergy Intermediate Unknown Uncoded 10/27/22 22:15 Review of Systems Review of Systems: CONSTITUTIONAL: Denies fever, chills, or sweats. MUSCULOSKELETAL: See HPI NEUROLOGIC: Denies headache, numbness, dizziness, or weakness. PSYCHIATRIC: Denies anxiety or depression. [facility] Past Medical History Medical History Lupus Social History Social History Smoking status: Never smoker Spiritual care concerns: No Exam Narrative: GENERAL: Well-appearing, well-nourished, and in no acute distress. HEAD: Normocephalic, atraumatic. EYES: PERRLA and EOMI. EXTREMITIES: Right lower extremity: DP and PT pulses intact. Soft compartments. No deformity. No bruising. Mild tenderness throughout the ankle. Significant pain in the anterior and lateral ankle with calf squeeze. Markedly reduced range of motion of the ankle due to pain. Left lower extremity: Benign. MSK exam is otherwise benign. Normal range of motion. No edema bilateral lower extremities. No calf tenderness bilaterally. SKIN: Warm, dry, no rash. NEURO: Alert and oriented x3. No focal deficits. PSYCH: Normal mood and affect. Course Course Emergency Course: Reevaluation of 0: Pain controlled with [place]. Vital Signs Vital signs: Vital Signs Temperature 99.1 F 10/27/22 22:26 Pulse Rate 94 10/27/22 22:26 Respiratory Rate 16 10/27/22 22:26 Blood Pressure 143/96 H 10/27/22 22:26 Pulse Oximetry 100 10/27/22 22:26 Oxygen Delivery Room Air 10/27/22 22:26 Temperature 99.1 F 10/27/22 22:26 Pulse Rate 88 10/28/22 02:00 Respiratory Rate 18 10/28/22 02:00 Blood Pressure 143/96 H 10/27/22 22:26 Pulse Oximetry 99 10/28/22 02:00 Oxygen Delivery Room Air 10/27/22 22:26 Medical Decision Making MDM Narrative Medical decision making narrative: This is a 22-year-old female presents to the ED with chief complaint of right ankle pain x2 days. Atraumatic. Vitals are stable. Starting to have pain up the lateral ankle into the right side of the calf. X-rays of the ankle show an OCD lesion of the talar dome. X-rays of the tib-fib were ordered as she has significant pain with calf squeeze. X-ray tib-fib show
[2022-10-28] MEDS: HYDROcodone/acetaminophen (*CRX) 5-325 MG TABLET 1 TAB PO (01:09)
[2022-10-28 02:00] VITALS: PULSE 88; RESP 18; O2SAT 99
== END 2022-10-28 02:00 | disposition home or self-care (01) ==
PROVIDERS: Emergency Provider Physician Assistant
DX: M21.6X1 Other acquired deformities of right foot (principal)
CPT/HCPCS: 73590; 73610; 73630; 99283; 99284; A9270